=== PATIENT | male | born 1985 | race African-American/Black ===

== ENCOUNTER 2016-09-15 21:10 | Emergency (ER) | payer BC, MEDICAID ==
[2016-09-15 21:23] VITALS: BP 146/72
[2016-09-15] MEDS ORDERED: Ondansetron 4 MG/2 ML SDV IVPUSH ONE (21:34)
[2016-09-15] MEDS ORDERED: Sodium Chloride 0.9% 1,000 ML IV ONE (21:34)
--- NOTE | 2016-09-15 21:41 | EDM.PDOC ---
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 He states that he picked up some [email or web address] pizza and wings last night, then today developed nausea, vomiting, and generalized abdominal pain. No diarrhea. No urinary symptoms, and no flank pain. He believes that he has had a fever, and his temperature was recorded as 100.6 here in the ED. No prior similar symptoms, and he states that he eats at [email or web address] frequently. The patient does not have a PCP. - Related Data Allergies Allergy/AdvReac Type Severity Reaction Status Date / Time No Known Allergies Allergy Verified 09/15/16 21:19 Home Meds: Home Meds Ondansetron [Zofran ODT] 4 mg PO Q8H PRN #5 tab.dis 09/15/16 [Rx] Past Medical History - Past Health History Medical/Surgical History: Denies Medical/Surgical History Social & Family History - Family History Family Medical History: Noncontributory - Tobacco Use Smoking Status *Q: Never Smoker - Caffeine Use Caffeine Use: Reports: Energy Drinks - Alcohol Use Alcohol Use History: Yes Alcohol Use Frequency: Socially - Recreational Drug Use Recreational Drug Use: No - Living Situation & Occupation Living situation: Reports: , with Spouse, with Family (2 kids) 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) ED ROS GENERAL - Review of Systems Review Of Systems: See Below Constitutional: Reports: No Symptoms HEENT: Reports: No Symptoms Respiratory: Reports: No Symptoms Cardiovascular: Reports: No Symptoms Endocrine: Reports: No Symptoms GI/Abdominal: Reports: No Symptoms : Reports: No Symptoms Musculoskeletal: Reports: No Symptoms Skin: Reports: No Symptoms Neurological: Reports: No Symptoms Psychiatric: Reports: No Symptoms Hematologic/Lymphatic: Reports: No Symptoms Immunologic: Reports: No Symptoms ED EXAM, GI/ABD - Physical Exam Exam: See Below Exam Limited By: No Limitations General Appearance: Alert, WD/WN, No Apparent Distress Eyes: Bilateral: Normal Appearance, EOMI Ears: Normal External Exam, Hearing Grossly Normal Nose: Normal Inspection, No Blood Throat/Mouth: Normal Inspection, Normal Lips, Normal Voice, No Airway Compromise Head: Atraumatic, Normocephalic Neck: Normal Inspection, Full Range of Motion Respiratory/Chest: No Respiratory Distress, Lungs Clear, Normal Breath Sounds, No Accessory Muscle Use Cardiovascular: Normal Peripheral Pulses, Regular Rate, Rhythm, No Edema, No Gallop, No JVD, No Murmur, No Rub GI/Abdominal Exam: Normal Bowel Sounds, Soft, Non-Tender, No Organomegaly, No Distention, No Abnormal Bruit, No Mass, Pelvis Stable (Male) Exam: Deferred Rectal (Males) Exam: Deferred Back Exam: Normal Inspection, Full Range of Motion. No: CVA Tenderness (L), CVA Tenderness (R) Extremities: Normal Inspection, Normal Range of Motion, Non-Tender, Normal Capillary Refill, No Pedal Edema Neurological: Alert, Oriented, Normal Cognition, No Motor/Sensory Deficits Psychiatric: Normal Affect Skin Exam: Warm, Dry, Intact, Normal Color, No Rash Lymphatic: No Adenopathy Course - Vital Signs Last Recorded V/S: Last Vital Signs Temp 38.1 C 09/15/16 21:19 Pulse 75 09/15/16 21:19 Resp 14 09/15/16 21:19 BP 146/72 H 09/15/16 21:19 Pulse Ox 100 09/15/16 21:19 - Orders/Labs/Meds Labs: Laboratory Tests 09/15/16 09/15/16 09/15/16 Range/Units 21:53 21:53 23:00 WBC 9.02 (4.23-9.07) K/mm3 RBC 5.06 (4.63-6.08) M/mm3 Hgb 13.3 L (13.7-17.5) gm/L Hct 39.3 L (40.1-51.0) % MCV 77.7 L (79.0-92.2) fl MCH 26.3 (25.7-32.2) pg MCHC 33.8 (32.2-35.5) g/dl RDW Std Deviation 39.5 (35.1-43.9) fL Plt Count 155 L (163-337) K/mm3 MPV 9.6 (9.4-12.3) fl Neutrophils % (Manual) 77 H (40-60) % Band Neutrophils % 0 (0-10) % Lymphocytes % (Manual) 16 L (20-40) % Atypical Lymphs % 0 % Monocytes % (Manual) 7 (2-10) % Eosinophils % (Manual) 0 L (0.8-7.0) % Basophils % (Manual) 0 L (0.2-1.2) Platelet Estimate Adequate Plt Morphology Comment Normal RBC Morph Comment Normal Sodium 141 (136-145) mEq/L Potassium 3.6 (3.5-5.1) mEq/L Chloride 104 (98-107) mEq/L Carbon Dioxide 31 (21-32) mEq/L Anion Gap 9.6 (5-15) BUN 12 (7-18) mg/dL Creatinine 1.4 H (0.7-1.3) mg/dL Est Cr Clr Drug Dosing 85.61 mL/min Estimated GFR (MDRD) > 60 (>60) mL/min BUN/Creatinine Ratio 8.6 L (14-18) Glucose 108 H (74-106) mg/dL Calcium 9.4 (8.5-10.1) mg/dL Total Bilirubin 0.6 (0.2-1.0) mg/dL AST 18 (15-37) U/L ALT 19 (16-63) U/L Alkaline Phosphatase 67 (46-116) U/L Total Protein 8.1 (6.4-8.2) g/dl Albumin 4.3 (3.4-5.0) g/dl Globulin 3.8 gm/dL Albumin/Globulin Ratio 1.1 (1-2) Lipase 71 L (73-393) U/L Urine Color Yellow (Yellow) Urine Appearance Clear (Clear) Urine pH 6.0 (5.0-8.0) Ur Specific [place] 1.020 (1.005-1.030) Urine Protein Negative (Negative) Urine Glucose (UA) Negative (Negative) Urine Ketones Negative (Negative) Urine Occult Blood Negative (Negative) Urine Nitrite Negative (Negative) Urine Bilirubin Negative (Negative) Urine Urobilinogen 0.2 (0.2-1.0) Ur Leukocyte Esterase Negative (Negative) Urine RBC Not seen (0-5) /hpf Urine WBC 0-5 (0-5) /hpf Urine WBC Clumps Not seen (NOT SEEN) /hpf Ur Epithelial Cells Not seen (0-5) /hpf Urine Bacteria Few (FEW) /hpf Urine Mucus Not seen (FEW) /hpf Urine Yeast Not seen (NOT SEEN) Meds: Medications Discontinued Medications Generic Name Dose Route Start Last Admin Trade Name Geo PRN Reason Stop Dose Admin Sodium Chloride 1,000 mls @ 999 mls/hr 09/15/16 21:34 09/15/16 21:59 Normal Saline IV 09/15/16 22:34 999 mls/hr ONETIME ONE Administration Ondansetron HCl 4 mg 09/15/16 21:34 09/15/16 22:00 Zofran IVPUSH 09/15/16 21:35 4 mg ONETIME ONE Administration - Re-Assessments/Exams Free Text/Narrative Re-Assessment/Exam: 09/15/16 21:40 While the patient has some generalized abdominal pain, he also states that he does sit-ups, which may be responsible for it. He has no tenderness to palpation of the abdomen, which is soft, with normal bowel sounds. Under the circumstances, I do not believe a CT scan of the abdomen and pelvis is indicated. I have ordered blood work, a urinalysis, IV fluid, and Zofran. 09/15/16 23:38 Test results discussed with the patient. Tonight's workup is unremarkable. No significant electrolyte abnormalities as a result of the patient's vomiting. The patient states that he is feeling much better following IV fluid and Zofran. He states that he is hungry. I will see if we can get him something to eat prior to discharging him home. I will prescribe Zofran. Departure - Departure Time of Disposition: 23:39 Disposition: Home, Self-Care 01 Condition: Good Clinical Impression: Nausea & vomiting - Discharge Information Referrals: PCP,None [Primary Care Provider] - Brodie Meyer [Physician] - Forms: ED Department Discharge Additional Instructions: You were seen in the emergency room for nausea, vomiting, and a low-grade fever today. Workup in the ER included blood work and a urinalysis. Your entire workup was unremarkable. You do not have an elevated WBC count to suggest a bacterial infection, and you have not suffered any significant electrolyte abnormalities as a result of your vomiting. Your symptoms improved after receiving IV fluid and the anti-nausea medicine Zofran. Dissolve one tablet of Zofran on your tongue up to every 8 hours, as needed for nausea/vomiting. We recommend you drink electrolyte-containing fluids, such as Gatorade. If you' re hungry, eat a bland diet, such as rice, oatmeal, bananas, etc. If your symptoms persist, please follow-up with Dr. Meyer in the clinic. If any other problems, please do not hesitate to return to the ER.
== END 2016-09-16 00:14 | disposition home or self-care (01) ==
LOC: JD.ED 21:10
DX: R11.2 Nausea with vomiting, unspecified (principal)
CPT/HCPCS: 36415; 80053; 81001; 83690; 85025; 96361; 96374; 99283; J2405; J7040; 99284